=== PATIENT | female | born 1950 | race Two or more races ===

== ENCOUNTER 2017-12-07 19:12 | Inpatient (IN) | payer OTHER, MEDICAID ==
[~2017-12-07] VITALS: Ht 154.9 cm; Wt 67.3 kg
[~2017-12-07 19:12] MED LIST: CAR3125T PO; ENAL20TA93 PO; INSUINJ2 SC
[2017-12-07 20:20] LABS: Basophils # (auto) 0.2 uL; Basophils % (auto) 1.2 % (0.0-2.0); Eosinophils # (auto) 0.4 uL; Eosinophils % (auto) 2.4 % (0.0-7.0); Hematocrit 31.3 % (36.0-46.0); Hemoglobin 10.1 g/dL (12.2-16.2); Lymphocytes # (auto) 1.6 uL; Lymphocytes % (auto) 10.9 % (10.0-50.0); Mean Corpuscular Hgb Conc. 32.4 g/dL (32.0-36.0); Mean Corpuscular Volume 86.3 fL (80.0-100.0); Monocytes # (auto) 0.8 uL; Monocytes % (auto) 5.6 % (0.0-12.0); Neutrophils # (auto) 12.1 uL; Neutrophils % (auto) 79.9 % (37.0-80.0); Platelet Count (auto) 404 10^3/uL (140-450); Red Blood Cells 3.62 10^6/uL (4.0-5.20); Red Cell Distribution Width 13.3 % (11.8-14.3); White Blood Cell 15.2 10^3/uL (4.4-10.8)
[2017-12-07 20:40] LABS: Albumin 3.1 g/dL (3.4-5.0); BUN/Creatinine Ratio 19.1; Bilirubin, Total 0.2 mg/dL (0.2-1.0); Calcium 9.1 mg/dL (8.5-10.1); Potassium 4.9 mmol/L (3.5-5.1); Total Protein 7.7 g/dL (6.4-8.2)
[2017-12-08] MEDS ORDERED: KETOROLAC TROMETH 60MG/2ML VIAL IM ONE (03:45)
[2017-12-08] MEDS ORDERED: KETOROLAC TROMETH 30 MG/ML 1ML VIAL IV ONE (04:15)
[2017-12-08] MEDS ORDERED: diphenhdrAMINE HCL 50 MG/1 ML VL IV ONE ×2 (04:45→05:30)
[2017-12-08] MEDS ORDERED: methylPREDNISolone SOD SUCC 125 MG/2 ML VL IV ONE (04:45)
[2017-12-08] MEDS ORDERED: PIPERACILLIN-TAZOB 3.375GM 100 ML IV ONE (05:15)
[2017-12-08] MEDS ORDERED: HYDROcodone-ACET 5/325MG TAB PO PRN (05:15)
[2017-12-08] MEDS ORDERED: TEMAZEPAM 15 MG CAP PO PRN (05:15)
[2017-12-08] MEDS ORDERED: ACETAMINOPHEN 325 MG TAB PO PRN (05:15)
[2017-12-08] MEDS ORDERED: DEXTROSE (50%) 50ML SYRG IV PRN (05:15)
[2017-12-08] MEDS ORDERED: ONDANSETRON HCL 4 MG/2 ML VIAL IV PRN (05:15)
[2017-12-08] MEDS ORDERED: FAMOTIDINE (10MG/ML) 2ML VL IV ONE (05:30)
[2017-12-08] MEDS ORDERED: diphenhdrAMINE HCL 50 MG/1 ML VL IV PRN (05:30)
[2017-12-08] MEDS: CLINDAMYCIN 600MG IV 50 ML IV SCH ×3 (07:53→23:03)
[2017-12-08] MEDS: InsuLIN REG 1unit/0.01ml Soln (100units/ml) SC SCH ×3 (08:05→17:59)
[2017-12-08] MEDS: ACCU-CHEK COMFORT CURVE STRIP VI SCH ×3 (08:05→18:00)
[2017-12-08] MEDS ORDERED: METF-370 PO (08:13)
[2017-12-08] MEDS ORDERED: INSR100KIT SC (08:13)
[2017-12-08 09:00] VITALS: BP_SYST 152; BP_SYST 157; BP_DIAS 81; BP_DIAS 85
[2017-12-08] MEDS: CLOPIDOGREL BISULFATE 75 MG TAB PO SCH (09:52)
[2017-12-08] MEDS: FAMOTIDINE 20 MG TAB PO SCH ×2 (09:53→23:05)
[2017-12-08] MEDS: ENALAPRIL MALEATE 10 MG TAB PO SCH (09:55)
[2017-12-08] MEDS: CARVEDILOL 3.125 MG TAB PO SCH ×2 (09:57→23:06)
[2017-12-08] MEDS: ENOXAPARIN SOD 40 MG/0.4 ML SYRINGE SC SCH (09:58)
[2017-12-08] MEDS: cefTRIAXone 1GM/10ml IVPUSH 10 ML IV SCH (09:58)
[2017-12-08 13:02] VITALS: BP 154/83
[2017-12-08 17:00] VITALS: BP 150/72
[2017-12-08 22:00] VITALS: BP 159/89
[2017-12-08] MEDS: ATORVASTATIN 20 MG TAB PO SCH (23:04)
[2017-12-09 05:00] VITALS: BP 135/74
[2017-12-09] MEDS: InsuLIN REG 1unit/0.01ml Soln (100units/ml) SC SCH ×4 (06:00→17:19)
[2017-12-09] MEDS: CLINDAMYCIN 600MG IV 50 ML IV SCH (06:00)
[2017-12-09] MEDS: ACCU-CHEK COMFORT CURVE STRIP VI SCH ×4 (06:00→17:19)
[2017-12-09 06:10] LABS: Basophils # (auto) 0 uL; Basophils % (auto) 0.1 % (0.0-2.0); Eosinophils # (auto) 0 uL; Eosinophils % (auto) 0.2 % (0.0-7.0); Hematocrit 27.5 % (36.0-46.0); Hemoglobin 9.3 g/dL (12.2-16.2); Lymphocytes # (auto) 1.7 uL; Lymphocytes % (auto) 9.9 % (10.0-50.0); Mean Corpuscular Hemoglobin 29.2 pg (28.0-32.0); Mean Corpuscular Volume 85.8 fL (80.0-100.0); Monocytes # (auto) 1.1 uL; Monocytes % (auto) 6.5 % (0.0-12.0); Neutrophils # (auto) 14.3 uL; Neutrophils % (auto) 83.3 % (37.0-80.0); Platelet Count (auto) 339 10^3/uL (140-450); Red Cell Distribution Width 13.4 % (11.8-14.3); White Blood Cell 17.2 10^3/uL (4.4-10.8)
[2017-12-09 06:27] LABS: Albumin 2.6 g/dL (3.4-5.0); Calcium 8.5 mg/dL (8.5-10.1); Potassium 4.1 mmol/L (3.5-5.1)
[2017-12-09 06:32] LABS: BUN/Creatinine Ratio 25.5; Bilirubin, Total 0.2 mg/dL (0.2-1.0)
[2017-12-09] MEDS: cefTRIAXone 1GM/10ml IVPUSH 10 ML IV SCH (08:55)
[2017-12-09] MEDS: ENALAPRIL MALEATE 10 MG TAB PO SCH (08:56)
[2017-12-09] MEDS: CARVEDILOL 3.125 MG TAB PO SCH ×2 (08:56→22:08)
[2017-12-09] MEDS: FAMOTIDINE 20 MG TAB PO SCH ×2 (08:56→22:09)
[2017-12-09] MEDS: ENOXAPARIN SOD 40 MG/0.4 ML SYRINGE SC SCH (08:57)
[2017-12-09] MEDS: CLOPIDOGREL BISULFATE 75 MG TAB PO SCH (08:57)
[2017-12-09 09:00] VITALS: BP 120/68
[2017-12-09] MEDS ORDERED: LEVOFLOXACIN 250MG 50 ML IV ONE (10:30)
[2017-12-09 12:51] VITALS: BP 117/65
[2017-12-09] MEDS: diphenhdrAMINE HCL 50 MG/1 ML VL IV PRN (15:15)
[2017-12-09 17:00] VITALS: BP 140/74
[2017-12-09] MEDS: ATORVASTATIN 20 MG TAB PO SCH (22:09)
[2017-12-09 22:14] VITALS: BP 148/77
[2017-12-10 05:30] VITALS: BP 141/75
[2017-12-10] MEDS: ACCU-CHEK COMFORT CURVE STRIP VI SCH ×3 (06:32→12:20)
[2017-12-10] MEDS: diphenhdrAMINE HCL 50 MG/1 ML VL IV PRN (06:34)
[2017-12-10] MEDS: InsuLIN REG 1unit/0.01ml Soln (100units/ml) SC SCH ×3 (06:34→12:30)
[2017-12-10 08:55] VITALS: BP 142/74
[2017-12-10] MEDS ORDERED: LEVOFLOXACIN 500MG 100 ML IV SCH (10:00)
[2017-12-10] MEDS: ENALAPRIL MALEATE 10 MG TAB PO SCH (11:09)
[2017-12-10] MEDS: CARVEDILOL 3.125 MG TAB PO SCH (11:10)
[2017-12-10] MEDS: FAMOTIDINE 20 MG TAB PO SCH (11:11)
[2017-12-10] MEDS: ENOXAPARIN SOD 40 MG/0.4 ML SYRINGE SC SCH (11:11)
[2017-12-10] MEDS: CLOPIDOGREL BISULFATE 75 MG TAB PO SCH (11:11)
[2017-12-10 12:30] VITALS: BP 132/72
[2017-12-10] MEDS ORDERED: LACTULOSE 20Gm/30ML SOLN PO ONE (13:15)
[2017-12-10 13:52] VITALS: BP 145/65
== END 2017-12-10 15:10 | disposition home or self-care (01) | DRG 603 ==
LOC: ER 19:12 → OVERFLOW 19:13 → WEST WING 12-08 06:25
PROVIDERS: ADMIT Nurse Practitioner; ATTEND Internal Medicine
DX: L03.115 Cellulitis of right lower limb (principal); E11.621 Type 2 diabetes mellitus with foot ulcer; E11.8 Type 2 diabetes mellitus with unspecified complications; L97.518 Non-pressure chronic ulcer of other part of right foot with other specified severity; X58.XXXA Exposure to other specified factors, initial encounter; I10 Essential (primary) hypertension; T78.49XA Other allergy, initial encounter; Z86.73 Personal history of transient ischemic attack (TIA), and cerebral infarction without residual deficits; Z90.710 Acquired absence of both cervix and uterus; Z83.3 Family history of diabetes mellitus; Z79.899 Other long term (current) drug therapy
CPT/HCPCS: 36415; 73630; 80053; 82962; 85025; 87040; 87081; 96374; 96375; 96376; J1815; J1885; J1956; J2543; J3490

== ENCOUNTER 2018-07-29 21:44 | Emergency (ER) | payer OTHER, MEDICAID ==
[~2018-07-29] VITALS: Ht 167.6 cm; Wt 63.5 kg
[~2018-07-29 21:44] MED LIST changes: -CAR3125T PO; +INSR100KIT SC; +METF-370 PO
[2018-07-29] MEDS ORDERED: LABETALOL HCL 5 MG/ML ML 20ML VIAL IV ONE (23:30)
[2018-07-30] MEDS ORDERED: HYDROcodone-ACET 10/325MG TAB PO ONE (00:30)
[2018-07-30] MEDS ORDERED: ONDANSETRON HCL 4 MG/2 ML VIAL IV ONE (01:00)
[2018-07-30 03:09] VITALS: BP 123/64
== END 2018-07-30 03:29 | disposition home or self-care (01) ==
LOC: EDBD 21:44 → EDUNIT# 21:44 → ER 21:47
DX: E11.621 Type 2 diabetes mellitus with foot ulcer (principal); L97.519 Non-pressure chronic ulcer of other part of right foot with unspecified severity; I10 Essential (primary) hypertension; Z90.710 Acquired absence of both cervix and uterus; Z79.4 Long term (current) use of insulin; Z86.73 Personal history of transient ischemic attack (TIA), and cerebral infarction without residual deficits
CPT/HCPCS: 73620; 82962; 96374; 96375; 99283; J2405

== ENCOUNTER 2019-09-28 02:28 | Emergency (ER) | payer OTHER, MEDICAID ==
[~2019-09-28] VITALS: Ht 162.6 cm; Wt 72.6 kg
[2019-09-28 04:16] LABS: Basophils # (auto) 0 uL; Basophils % (auto) 0.2 % (0.0-2.0); Eosinophils # (auto) 0.3 uL; Hematocrit 33.2 % (36.0-46.0); Lymphocytes # (auto) 2.1 uL; Lymphocytes % (auto) 16.1 % (10.0-50.0); Mean Corpuscular Hemoglobin 28.9 pg (28.0-32.0); Mean Corpuscular Volume 87.6 fL (80.0-100.0); Monocytes # (auto) 0.8 uL; Monocytes % (auto) 6.1 % (0.0-12.0); Neutrophils # (auto) 9.9 uL; Neutrophils % (auto) 75.6 % (37.0-80.0); Platelet Count (auto) 392 10^3/uL (140-450); Red Blood Cells 3.79 10^6/uL (4.0-5.20); Red Cell Distribution Width 14.1 % (11.8-14.3)
[2019-09-28 04:49] LABS: Potassium 5.1 mmol/L (3.5-5.1)
[2019-09-28 04:53] LABS: Albumin 3.6 g/dL (3.4-5.0); BUN/Creatinine Ratio 34.2; Calcium 9.6 mg/dL (8.5-10.1)
[2019-09-28 04:56] LABS: Bilirubin, Total 0.3 mg/dL (0.2-1.0); Total Protein 8.5 g/dL (6.4-8.2)
[2019-09-28] MEDS ORDERED: ONDANSETRON HCL 4 MG/2 ML VIAL IV ONE (05:15)
[2019-09-28] MEDS ORDERED: MORPHINE SULFATE 4 MG/ML SYR/VIAL IV ONE (05:15)
[2019-09-28] MEDS ORDERED: SODIUM CHLORIDE 0.9% 1,000 ML IV ONE (07:43)
[2019-09-28] MEDS ORDERED: SODIUM CHLORIDE 0.9% 500 ML IVB ONE (07:43)
[2019-09-28] MEDS ORDERED: HYDROmorphone HCL 2 MG/ML VL IV ONE (07:45)
[2019-09-28] MEDS ORDERED: PROMETHAZINE HCL 25 MG/ML 1ML IV PRN (07:45)
[2019-09-28 08:42] LABS: Urine Bacteria FEW /hpf (None Seen); Urine Blood Negative /uL (Negative); Urine Hyaline Cast FEW /lpf (0 - 2); Urine Mucus FEW (None Seen); Urine Specific Gravity 1.016 (1.001-1.035); Urine WBC 6 /hpf (0 - 5)
[2019-09-28] MEDS ORDERED: cefTRIAXone 1GM/50ML D5W 50 ML IV ONE (12:15)
[2019-09-28 13:04] VITALS: BP 119/66
== END 2019-09-28 13:24 | disposition home or self-care (01) ==
LOC: EDBD 02:28 → ER 02:28
DX: N39.0 Urinary tract infection, site not specified (principal); E87.5 Hyperkalemia; I10 Essential (primary) hypertension; E11.21 Type 2 diabetes mellitus with diabetic nephropathy; E78.5 Hyperlipidemia, unspecified; Z90.710 Acquired absence of both cervix and uterus; Z79.4 Long term (current) use of insulin; Z79.899 Other long term (current) drug therapy
CPT/HCPCS: 36415; 71046; 74176; 80053; 81001; 82150; 83690; 83735; 85025; 93005; 96365; 96375; 99285; J0696; J1170; J2270; J2405; J2550; J7030